=== PATIENT | female | born 1965 | race Caucasian/White ===

== ENCOUNTER → 2018-02-12 | Outpatient (CLI) | payer BC ==
--- NOTE | 2018-02-12 18:05 | US ---
EXAMINATION TYPE: US venous doppler duplex LE RT DATE OF EXAM: 02/12/2018 5:46 PM COMPARISON: NONE CLINICAL HISTORY: M79.669 Pain in right calf. SIDE PERFORMED: Right TECHNIQUE: The lower extremity deep venous system is examined utilizing real time linear array sonog jonn with graded compression, doppler sonography and color-flow sonography. VESSELS IMAGED: External Iliac Vein (EIV) Common Femoral Vein Deep Femoral Vein Greater Saphenous Vein * Femoral Vein Popliteal Vein Small Saphenous Vein * Proximal Calf Veins (* superficial vessels) Right Leg: Negative for DVT IMPRESSION: No evidence of deep venous thrombosis in the right leg.
== END | disposition home or self-care (01) ==
LOC: RADUSMAIN 17:15
PROVIDERS: ATTEND Nurse Practitioner Family
DX: M79.669 Pain in unspecified lower leg (principal)

== ENCOUNTER 2021-04-05 12:55 | Observation (INO) | payer BC ==
--- NOTE | 2021-04-05 13:30 | ED ---
General Adult HPI - General Chief complaint: Chest Pain Stated complaint: back/chest pain Time Seen by Provider: 04/05/21 13:13 Source: patient Mode of arrival: ambulatory Limitations: no limitations - History of Present Illness Initial comments: Dictation was produced using [employer] dictation software. please excuse any grammatical, word or spelling errors. Chief Complaint: 55-year-old female past medical history multiple sclerosis p resents with chest pain, epigastric pain, lower back pain and leg swelling. History of Present Illness: Patient is 55-year-old female presents with multiple complaints. Patient states she has chest and epigastric pain, lower back pain or leg swelling. Patient states that she has past medical history of multiple sclerosis. She gets frequent injections from her neurologist. Patient states her symptoms have been ongoing for 48-72 hours. Patient has any cardiac history. She does have a history of dyslipidemia. Patient has no fever. States that her chest pain is nonradiating. No nausea or vomiting. She does complain of mild dyspnea. Patient states that she has pain and different parts of her body. States it is not worse with movement or palpation. No constitutional symptoms. She called one of her physicians office and was redirected to the emergency room for concerns of possible heart attack. Patient allegedly has strong family history of cardiac disease. The ROS documented in this emergency department record has been reviewed and confirmed by me. Those systems with pertinent positive or negative responses have been documented in the HPI. All other systems are other negative and/or noncontributory. PHYSICAL EXAM: General Impression: Alert and oriented x3, not in acute distress HEENT: Normocephalic atraumatic, extra-ocular movements intact, pupils equal and reactive to light bilaterally, mucous membranes moist. Cardiovascular: Heart regular rate and rhythm Chest: Able to complete full sentences, no retractions, no tachypnea Abdomen: abdomen soft, non-tender, non-distended, no organomegaly Musculoskeletal: Pulses present and equal in all extremities, no peripheral edema Motor: no focal deficits noted Neurological: CN II-XII grossly intact, no focal motor or sensory deficits noted Skin: Intact with no visualized rashes Psych: Normal affect and mood ED course: 55-year-old female presents to the emergency department for multiple complaints. Her complaints include chest pain, epigastric pain, lower back pain, lower extremity swelling. She does have atypical chest pain with typical features. Vital signs upon arrival are within acceptable limits. Physical examination is benign. Patient does not appear to be in any acute distress. Laboratory evaluation obtained. Patient is leukocytosis of 17.8. She has no localizing symptoms. No cough. No dysuria or no abdominal pain concerning for surgical abdomen. Coag panel is unremarkable. Metabolic panel is negative. Troponin negative. Brain natruretic peptide negative. Lipase negative. Ur inalysis shows no findings of urinary tract infection. Patient does not have any respiratory symptoms. At this point is concerned as this is a stress leukocytosis. Chest x-ray was nonacute. Disposition options were discussed. Patient be admitted to the hospital for serial troponins, cardiac monitoring and cardiology consultation. Patient given aspirin. Patient be evaluated at bedside at 2:45 PM found to be in stable medical condition. Patient is well- appearing. She denies any chest pain at this time. EKG interpretation: Ventricular rate 79, normal sinus rhythm, PA interval 136, QRS 72, QTC 378. No PA prolongation, no QTC prolongation, no ST or T-wave changes noted. No old EKG for comparison.. Overall, this EKG is unremarkable - Related Data Home Medications Medication Instructions Recorded Confirmed Ascorbic Acid [Vitamin C] 1,000 mg PO DAILY 04/05/21 04/05/21 Aspirin EC [Ecotrin Low Dose] 81 mg PO DAILY 04/05/21 04/05/21 Atorvastatin [Lipitor] 40 mg PO HS 04/05/21 04/05/21 Calcium Carbonate [Calcium] 600 mg PO DAILY 04/05/21 04/05/21 Glatiramer Acetate 40 mg PO MOWEFR 04/05/21 04/05/21 Glucosamine Sulfate 1,000 mg PO BID 04/05/21 04/05/21 Multivitamins, Thera [Multivitamin 1 tab PO DAILY 04/05/21 04/05/21 (formulary)] Naproxen 500 mg PO BID 04/05/21 04/05/21 Vitamin B Complex 1 cap PO DAILY 04/05/21 04/05/21 Zinc 50 mg PO DAILY 04/05/21 04/05/21 Allergies Allergy/AdvReac Type Severity Reaction Status Date / Time No Known Allergies Allergy Verified 04/05/21 13:43 Review of Systems ROS Statement: Those systems with pertinent positive or pertinent negative responses have been documented in the HPI. ROS Other: All systems not noted in ROS Statement are negative. Past Medical History Past Medical History: Hyperlipidemia Additional Past Medical History / Comment(s): MS History of Any Multi-Drug Resistant Organisms: None Reported Past Surgical History: No Surgical Hx Reported Past Psychological History: No Psychological Hx Reported Smoking Status: Former smoker Past Alcohol Use History: None Reported Past Drug Use History: None Reported General Exam Limitations: no limitations Course Vital Signs 04/05/21 13:06 Temperature 98.2 F Pulse Rate 99 Respiratory 18 Rate Blood Pressure 125/68 O2 Sat by Pulse 97 Oximetry Medical Decision Making - Lab Data Result diagrams: 04/05/21 13:45 04/05/21 13:45 Lab Results 04/05/21 04/05/21 04/05/21 Range/Units 13:45 13:45 13:45 WBC 17.8 H (3.8-10.6) k/uL RBC 4.23 (3.80-5.40) m/uL Hgb 14.0 (11.4-16.0) gm/dL Hct 40.1 (34.0-46.0) % MCV 94.7 (80.0-100.0) fL MCH 33.0 (25.0-35.0) pg MCHC 34.9 (31.0-37.0) g/dL RDW 13.0 (11.5-15.5) % Plt Count 316 (150-450) k/uL MPV 7.4 Neutrophils % 87 % Lymphocytes % 7 % Monocytes % 3 % Eosinophils % 1 % Basophils % 0 % Neutrophils # 15.5 H (1.3-7.7) k/uL Lymphocytes # 1.3 (1.0-4.8) k/uL Monocytes # 0.6 (0-1.0) k/uL Eosinophils # 0.2 (0-0.7) k/uL Basophils # 0.1 (0-0.2) k/uL PT 10.5 (9.0-12.0) sec INR 1.0 (<1.2) APTT 22.9 (22.0-30.0) sec Sodium (137-145) mmol/L Potassium (3.5-5.1) mmol/L Chloride (98-107) mmol/L Carbon Dioxide (22-30) mmol/L Anion Gap mmol/L BUN (7-17) mg/dL Creatinine (0.52-1.04) mg/dL Est GFR (CKD-EPI)AfAm (>60 ml/min/1.73 sqM) Est GFR (CKD-EPI)NonAf (>60 ml/min/1.73 sqM) Glucose (74-99) mg/dL Calcium (8.4-10.2) mg/dL Magnesium (1.6-2.3) mg/dL Total Bilirubin (0.2-1.3) mg/dL AST (14-36) U/L ALT (4-34) U/L Alkaline Phosphatase (38-126) U/L Troponin I (0.000-0.034) ng/mL NT-Pro-B Natriuret Pep pg/mL Total Protein (6.3-8.2) g/dL Albumin (3.5-5.0) g/dL Lipase (23-300) U/L Urine Color Yellow Urine Appearance Clear (Clear) Urine pH 7.0 (5.0-8.0) Ur Specific [place] 1.018 (1.001-1.035) Urine Protein Trace H (Negative) Urine Glucose (UA) Negative (Negative) Urine Ketones Negative (Negative) Urine Blood Negative (Negative) Urine Nitrite Negative (Negative) Urine Bilirubin Negative (Negative) Urine Urobilinogen 2.0 (<2.0) mg/dL Ur Leukocyte Esterase Negative (Negative) 04/05/21 04/05/21 04/05/21 Range/Units 13:45 13:45 13:45 WBC (3.8-10.6) k/uL RBC (3.80-5.40) m/uL Hgb (11.4-16.0) gm/dL Hct (34.0-46.0) % MCV (80.0-100.0) fL MCH (25.0-35.0) pg MCHC (31.0-37.0) g/dL RDW (11.5-15.5) % Plt Count (150-450) k/uL MPV Neutrophils % % Lymphocytes % % Monocytes % % Eosinophils % % Basophils % % Neutrophils # (1.3-7.7) k/uL Lymphocytes # (1.0-4.8) k/uL Monocytes # (0-1.0) k/uL Eosinophils # (0-0.7) k/uL Basophils # (0-0.2) k/uL PT (9.0-12.0) sec INR (<1.2) APTT (22.0-30.0) sec Sodium 138 (137-145) mmol/L Potassium 4.2 (3.5-5.1) mmol/L Chloride 105 (98-107) mmol/L Carbon Dioxide 25 (22-30) mmol/L Anion Gap 8 mmol/L BUN 11 (7-17) mg/dL Creatinine 0.64 (0.52-1.04) mg/dL Est GFR (CKD-EPI)AfAm >90 (>60 ml/min/1.73 sqM) Est GFR (CKD-EPI)NonAf >90 (>60 ml/min/1.73 sqM) Glucose 129 H (74-99) mg/dL Calcium 9.3 (8.4-10.2) mg/dL Magnesium 2.0 (1.6-2.3) mg/dL Total Bilirubin 0.5 (0.2-1.3) mg/dL AST 32 (14-36) U/L ALT 34 (4-34) U/L Alkaline Phosphatase 123 (38-126) U/L Troponin I <0.012 (0.000-0.034) ng/mL NT-Pro-B Natriuret Pep 467 pg/mL Total Protein 7.4 (6.3-8.2) g/dL Albumin 4.2 (3.5-5.0) g/dL Lipase 66 (23-300) U/L Urine Color Urine Appearance (Clear) Urine pH (5.0-8.0) Ur Specific [place] (1.001-1.035) Urine Protein (Negative) Urine Glucose (UA) (Negative) Urine Ketones (Negative) Urine Blood (Negative) Urine Nitrite (Negative) Urine Bilirubin (Negative) Urine Urobilinogen (<2.0) mg/dL Ur Leukocyte Esterase (Negative) Disposition Clinical Impression: Chest pain Disposition: ADMITTED IP TO THIS [facility] Condition: Fair Referrals: Terrence Abraham MD [Primary Care Provider] - 1-2 days
[2021-04-05 14:09] LABS: Basophils # (A) 0.1 k/uL (0-0.2); Basophils % (A) 0 %; Eosinophils # (A) 0.2 k/uL (0-0.7); Eosinophils % (A) 1 %; HCT 40.1 % (34.0-46.0); Lymphocytes # (A) 1.3 k/uL (1.0-4.8); Lymphocytes % (A) 7 %; MCHC 34.9 g/dL (31.0-37.0); MCV 94.7 fL (80.0-100.0); Mean Platelet Volume 7.4; Monocytes # (A) 0.6 k/uL (0-1.0); Monocytes % (A) 3 %; Neutrophils # (A) 15.5 k/uL (1.3-7.7); Neutrophils % (A) 87 %; Platelet Count 316 k/uL (150-450); RBC 4.23 m/uL (3.80-5.40); WBC 17.8 k/uL (3.8-10.6)
[2021-04-05 14:10] LABS: Appearance,Urine Clear (Clear); Bilirubin,Urine Negative (Negative); Blood,Urine Negative (Negative); Color,Urine Yellow; Glucose,Urine (UA) Negative (Negative); Ketones,Urine Negative (Negative); Leukocyte Esterase,Urine Negative (Negative); Nitrite,Urine Negative (Negative); Protein,Urine Trace (Negative); Specific Gravity,Urine 1.018 (1.001-1.035)
[2021-04-05 14:18] LABS: Partial Thromboplastin Time 22.9 sec (22.0-30.0); Prothrombin Time 10.5 sec (9.0-12.0)
[2021-04-05 14:22] LABS: ALT 34 U/L (4-34); AST 32 U/L (14-36); African American GFR (CKD) >90 (>60 ml/min/1.73 sqM); Albumin 4.2 g/dL (3.5-5.0); Alkaline Phosphatase 123 U/L (38-126); Anion Gap 8 mmol/L; Blood Urea Nitrogen 11 mg/dL (7-17); Calcium 9.3 mg/dL (8.4-10.2); Carbon Dioxide 25 mmol/L (22-30); Chloride 105 mmol/L (98-107); Glucose 129 mg/dL (74-99); Lipase 66 U/L (23-300); Non-African American GFR(CKD) >90 (>60 ml/min/1.73 sqM); Potassium 4.2 mmol/L (3.5-5.1); Sodium 138 mmol/L (137-145); Total Bilirubin 0.5 mg/dL (0.2-1.3); Total Protein 7.4 g/dL (6.3-8.2)
--- NOTE | 2021-04-05 14:29 | XR ---
EXAMINATION TYPE: XR chest 2V DATE OF EXAM: 04/05/2021 COMPARISON: None INDICATION: Epigastric and back pain TECHNIQUE: Frontal and lateral views of the chest are obtained. FINDINGS: The heart size is normal. The pulmonary vasculature is normal. The lungs are clear. IMPRESSION: 1. No acute pulmonary process.
[2021-04-05] MEDS ORDERED: NITROGLYCERIN SL TABS 0.4 MG TAB SUBLINGUAL PRN (14:50)
[2021-04-05] MEDS ORDERED: ASPIRIN 81 MG PO STA (14:50)
--- NOTE | 2021-04-05 17:50 | P.HPIM ---
History of Present Illness H&P Date: 04/05/21 Chief Complaint: Chest pain HISTORY OF PRESENT ILLNESS: This is a 55-year-old female one of my patient with a previous medical history significant for multiple sclerosis, GERD with esophagitis, hyper lipidemia, and osteoarthritis, presented to the emergency department at [facility] today with with the chest pain associated with epigastric pain along with low back pain and leg swelling, she presented with numerous complaints at this point in time she was evaluated in the ER and had a twelve-lead EKG that did not show evidence of acute of normalities, her cardiac enzymes are negative, BNP was negative, her white counts were elevated at 17,000, because of the presentation and because of her family history of heart disease she was admitted to the hospital for evaluation of coronary artery disease and risk stratification. REVIEW OF SYSTEMS: Constitutional: No documented fever, no chills, no night sweats. No weight change. No weakness, fatigue or lethargy. No daytime sleepiness. HEENT: No headache. No blurred vision or double vision, no loss of vision. No loss of Hearing, no ringing in the ears, no dizziness. No nasal drainage or congestion. No epistaxis. No sore throat. Lungs: No shortness of breath, no cough, no sputum production. No wheezing. Reports dyspnea with activity. Cardiovascular: positive for chest pain, positive for lower extremity edema. No palpitations. No paroxysmal nocturnal dyspnea. No orthopnea. No lig htheadedness or dizziness. No syncopal episodes. Abdominal: Reports abdominal pain. No nausea, vomiting. No diarrhea. No constipation. No bloody or tarry stools reports loss of appetite. Genitourinary: No dysuria, increased frequency, urgency. No urinary retention. Musculoskeletal: No myalgias. No muscle weakness, no gait dysfunction, no frequent falls. No back pain. No neck pain. Integumentary: No wounds, no lesions. No rash or pruritus. No unusual bruising. No change in hair or nails. Neurologic: No aphasia. No facial droop. No change in mentation. No head injury. No headache. No paralysis. No paresthesia. Psychiatric: No depression. No anxiety. No mood swings. Endocrine: No abnormal blood sugars. No weight change. PAST MEDICAL HISTORY: Mixed hyperlipidemia. Multiple sclerosis. GERD with esophagitis. Osteoarthritis. PAST SURGICAL HISTORY: No past surgical history. SOCIAL HISTORY: Patient is a lifelong nonsmoker she denies any alcohol ingestion, no drainage or abuse. FAMILY HISTORY: Father is 82-year-old with history of CAD post PCI and multiple stent placement, hypertension and hypertensive cardio vascular disease, hyperlipidemia and chronic low back pain mother is 80-year-old with history of diabetes mellitus type 2 hypertension hyperlipidemia coronary artery disease status post coronary artery bypass graft, patient has one sister with hypertension and diabetes and hyperlipidemia. PHYSICAL EXAMINATION: General: 55-year-old female laying down in bed in no apparent distress. HEENT: Head is atraumatic, normocephalic, pupils were equal round reactive to light and recommendation, extraocular muscle movement were intact, sclera nonict beatris, conjunctivae were pale, mucous membranes of the mouth are somewhat dry. Neck: Supple, no JVP, normal carotid upstroke bilaterally, no lymphadenopathy. Chest: Decreased breath sounds at the bases, few rhonchi, no expiratory wheezes, no chest wall tenderness, no intercostal retractions. Heart: First heart sound is normal, second heart sounds normal Abdomen: Soft, nontender, nondistended, positive bowel sounds no hepatosplenomegaly. , Extremities: There is trace edema no calf tenderness DP +2 bilaterally. Neurologic examination: Patient is awake alert and oriented X 3, cranial nerves II-12 appear grossly intact, muscle power were 5 out of 5 in upper extremities and 5 out of 5 in bilateral lower extremities, deep tendon reflexes normal bilaterally. ASSESSMENT AND PLAN: 1. Chest pain likely noncardiac but patient does appear to have a significant family history of coronary artery disease. Cardiac enzymes 2 every 3 hours, echocardiogram for evaluation of LV function,, we will arrange for dobutamine stress echo tomorrow morning. 2. Mixed hyperlipidemia. Continue atorvastatin 40 mg orally once every day. Monitor the patient panel, keep LDL 55-70. 3. Multiple sclerosis. Patient has been under the care of neurology continue patient on Glatiramer acetate 40 mg /ml 1 mL subcutaneously Thursday, Thursday, and Thursday 4. Osteoarthritis. Continue patient on glucose 7 as needed hold Naprosyn for now. 5. GERD with esophagitis. Continue patient on omeprazole 40 mg once every day or its substitute. 6. DVT prophylaxis. Heparin 5000 units subcutaneously every 8 hours. 7. GI prophylaxis. Continue PPI. 8. Observation. 9. Patient is full code. Past Medical History Past Medical History: Hyperlipidemia Additional Past Medical History / Comment(s): MS History of Any Multi-Drug Resistant Organisms: None Reported Past Surgical History: No Surgical Hx Reported Past Psychological History: No Psychological Hx Reported Smoking Status: Former smoker Past Alcohol Use History: None Reported Past Drug Use History: None Reported Medications and Allergies Home Medications Medication Instructions Recorded Confirmed Type Ascorbic Acid [Vitamin C] 1,000 mg PO DAILY 04/05/21 04/05/21 History Aspirin EC [Ecotrin Low Dose] 81 mg PO DAILY 04/05/21 04/05/21 History Atorvastatin [Lipitor] 40 mg PO HS 04/05/21 04/05/21 History Calcium Carbonate [Calcium] 600 mg PO DAILY 04/05/21 04/05/21 History Glatiramer Acetate 40 mg PO MOWEFR 04/05/21 04/05/21 History Glucosamine Sulfate 1,000 mg PO BID 04/05/21 04/05/21 History Multivitamins, Thera [Multivitamin 1 tab PO DAILY 04/05/21 04/05/21 History (formulary)] Naproxen 500 mg PO BID 04/05/21 04/05/21 History Vitamin B Complex 1 cap PO DAILY 04/05/21 04/05/21 History Zinc 50 mg PO DAILY 04/05/21 04/05/21 History Allergies Allergy/AdvReac Type Severity Reaction Status Date / Time No Known Allergies Allergy Verified 04/05/21 13:43 Physical Exam Vitals: Vital Signs Temp Pulse Resp BP Pulse Ox 04/05/21 15:31 18 04/05/21 15:10 99 18 135/68 82 L 04/05/21 13:06 98.2 F 99 18 125/68 97 Intake and Output 04/05/21 04/05/21 04/05/21 06:59 14:59 22:59 Other: Weight 73.21 kg Results CBC & Chem 7: 04/05/21 13:45 04/05/21 13:45 Labs: Abnormal Lab Results - Last 24 Hours (Table) 04/05/21 04/05/21 04/05/21 Range/Units 13:45 13:45 13:45 WBC 17.8 H (3.8-10.6) k/uL Neutrophils # 15.5 H (1.3-7.7) k/uL Glucose 129 H (74-99) mg/dL Urine Protein Trace H (Negative)
[2021-04-05] MEDS ORDERED: GLATIRAMER ACETATE 40 MG/ML PO SCH (18:00)
[2021-04-05] MEDS: HYDROcodone/APAP 5-325MG 1 EACH TAB PO PRN (19:33)
[2021-04-05 19:40] VITALS: RESP 16
[2021-04-05] MEDS ORDERED: NON FORMULARY DRUG (Glucosamine Sulfate [Glucosamine Sulfate] 1,000 MG Tablet) PO SCH (21:00)
[2021-04-05] MEDS ORDERED: ATORVASTATIN 40 MG TAB PO SCH (21:00)
[2021-04-05] MEDS: HEPARIN SODIUM,PORCINE/PF 5,000 UNIT/0.5 ML SYRINGE SQ SCH (23:25)
[2021-04-06 07:06] VITALS: BP 114/69; TEMP 98.1
[2021-04-06] MEDS: HYDROcodone/APAP 5-325MG 1 EACH TAB PO PRN (07:06)
[2021-04-06] MEDS: HEPARIN SODIUM,PORCINE/PF 5,000 UNIT/0.5 ML SYRINGE SQ SCH (07:09)
[2021-04-06] MEDS ORDERED: PANTOPRAZOLE 40 MG TABLET PO SCH (07:30)
[2021-04-06 07:33] LABS: ALT 29 U/L (4-34); AST 27 U/L (14-36); African American GFR (CKD) >90 (>60 ml/min/1.73 sqM); Albumin 3.5 g/dL (3.5-5.0); Albumin/Globulin Ratio 1.1; Alkaline Phosphatase 115 U/L (38-126); Anion Gap 8 mmol/L; Blood Urea Nitrogen 13 mg/dL (7-17); Carbon Dioxide 23 mmol/L (22-30); Chloride 105 mmol/L (98-107); Globulin 3.2 g/dL; Glucose 118 mg/dL (74-99); Non-African American GFR(CKD) >90 (>60 ml/min/1.73 sqM); Potassium 4.5 mmol/L (3.5-5.1); Sodium 136 mmol/L (137-145); Total Bilirubin 0.5 mg/dL (0.2-1.3); Total Protein 6.7 g/dL (6.3-8.2)
[2021-04-06 07:50] VITALS: PULSE 79
[2021-04-06] MEDS ORDERED: ASPIRIN 81 MG PO SCH (09:00)
[2021-04-06] MEDS ORDERED: NON FORMULARY DRUG (Vitamin B Complex [Vitamin B Complex] 1 EACH Capsule) PO SCH (09:00)
[2021-04-06] MEDS ORDERED: MULTIVITAMINS, THERA 1 EACH TAB PO SCH (09:00)
[2021-04-06] MEDS ORDERED: ASPIRIN 325 MG TAB PO SCH (09:00)
[2021-04-06] MEDS ORDERED: ZINC SULFATE 220 MG CAP PO SCH (09:00)
[2021-04-06] MEDS ORDERED: ASCORBIC ACID 500 MG TAB PO SCH (09:00)
[2021-04-06] MEDS ORDERED: CALCIUM CARBONATE 500 MG CHEWABLE PO SCH (09:00)
[2021-04-06 11:50] LABS: Basophils # (A) 0.04 X 10*3/uL (0.00-0.10); Basophils % (A) 0.3 %; Eosinophils # (A) 0.17 X 10*3/uL (0.04-0.35); Eosinophils % (A) 1.2 %; HCT 38.3 % (37.2-46.3); HGB 12.4 g/dL (12.0-15.0); Lymphocytes # (A) 2.27 X 10*3/uL (0.90-5.00); Lymphocytes % (A) 15.7 %; MCH 30.8 pg (27.0-32.0); MCHC 32.4 g/dL (32.0-37.0); Monocytes # (A) 0.96 X 10*3/uL (0.20-1.00); Monocytes % (A) 6.6 %; Neutrophils # (A) 10.95 X 10*3/uL (1.80-7.70); Neutrophils % (A) 75.8 %; Platelet Count 293 X 10*3/uL (140-440); RBC 4.03 X 10*6/uL (4.10-5.20); RDW 12.8 % (11.5-14.5); WBC 14.45 X 10*3/uL (4.50-10.00)
--- NOTE | 2021-04-06 12:16 | ECHOF ---
Referral Reason:Chest pain MEASUREMENTS -------- HEIGHT: 152.4 cm WEIGHT: 73.0 kg BP: RVIDd: 2.5 cm (< 3.3) IVSd: 0.8 cm (0.6 - 1.1) LVIDd: 3.7 cm (3.9 - 5.3) LVPWd: 0.9 cm (0.6 - 1.1) IVSs: 1.2 cm LVIDs: 2.6 cm LVPWs: 1.3 cm LAESV Index (A-L): 17.81 ml/m Ao Diam: 2.4 cm (2.0 - 3.7) AV Cusp: 1.4 cm (1.5 - 2.6) MV EXCURSION: 17.007 mm (> 18.000) MV EF SLOPE: 105 mm/s (70 - 150) EPSS: 0.3 cm MV E Cristopher: 1.00 m/s MV DecT: 210 ms MV A Cristopher: 0.61 m/s MV E/A Ratio: 1.64 RAP: 5.00 mmHg RVSP: 33.11 mmHg FINDINGS -------- Sinus rhythm. This was a technically good study. LV size, wall thickness and systolic function are normal, with an EF greater than 55%. The left saida tricular size is normal. The right ventricle is normal in size. Normal LA size by volume 22+/-6 ml/m2. The right atrial size is normal. The aortic valve is trileaflet, and appears structurally normal. No aortic stenosis or regurgitation. Mild mitral regurgitation is present. Mild tricuspid regurgitation present. Right ventricular systolic pressure is normal at < 35 mmHg. There is no pulmonic regurgitation present. There is no pericardial effusion. CONCLUSIONS -------- 1. LV size, wall thickness and systolic function are normal, with an EF greater than 55%. 2. The left ventricular size is normal. 3. The right ventricle is normal in size. 4. Normal LA size by volume 22+/-6 ml/m2. 5. The right atrial size is normal. 6. The aortic valve is trileaflet, and appears structurally normal. No aortic stenosis or regurgitati on. 7. Mild mitral regurgitation is present. 8. Mild tricuspid regurgitation present. 9. There is no pericardial effusion. WELDING PROCESS ENGINEER: Suzanne Stephens RDCS
--- NOTE | 2021-04-06 12:31 | CONS ---
CONSULTATION This is a 55-year-old lady, a patient of Dr. Abraham, who came into the hospital with episode of chest tightness and pressure. Quality of pain is atypical. She is resting comfortably without symptoms. Her troponins are all normal. Quality of pain is atypical. She has a family history of CAD, but it is not considered risk factor, since her parents were in their late 70s or early 80s when they had CAD. She is resting comfortably without symptoms. EKG and troponins are normal. When she came into the hospital, she complained initially of some epigastric pain, low back pain, leg swelling, had multiple complaints and then she said she had some twinges in the chest. Therefore she was admitted. Atypical pain. No recurrence. She is comfortable. PAST MEDICAL HISTORY: Remarkable for multiple sclerosis, hyperlipidemia and also some history of gastroesophageal reflux disease. MEDICATIONS: Medications at home include aspirin 81 mg daily, multivitamins, atorvastatin 40 mg daily, naproxen and glucosamine. ALLERGIES: NONE. PHYSICAL EXAMINATION: On examination, blood pressure is 118/70, pulse rate 74 per minute, regular. HEENT unremarkable. Fundus was not examined by me. Neck is supple. No JVD. I do not hear a carotid bruit. There is no thyromegaly. Heart exam reveals S1, S2 heard normally without a rub, murmur or gallop. Lungs are clear. Abdomen is soft, nontender. Lower extremities reveal normal pulses. No edema. CENTRAL NERVOUS SYSTEM: A detailed exam was not performed, but no focal deficits. EKG revealed sinus mechanism, no acute changes. Laboratory data revealed unremarkable troponins. No significant abnormalities. IMPRESSION: 1. Atypical chest pain. Normal EKG and unremarkable troponins. 2. History of multiple sclerosis. 3. History of gastroesophageal reflux disease. 4. Hyperlipidemia. 5. History of multiple sclerosis with no exacerbations recently. RECOMMENDATIONS: I am recommending that we can increase activity, feed her and discharge today. I will see her in the office next week and consider stress testing as an outpatient. No further intervention is necessary. An echo was ordered and this can be done, but there is no need to hold the patient's discharge for the echocardiogram findings. The patient can be discharged today. MMODL / IJN: [id number] /
[2021-04-06 21:45] LABS: Chol/HDL Ratio 3.09 Ratio; LDL Cholesterol,Calculated 68.8 mg/dL (0.0-131.0)
== END 2021-04-06 13:31 | disposition home or self-care (01) ==
LOC: EC 12:55 → 6NMEDSUR 14:51
PROVIDERS: ADMIT Internal Medicine; ATTEND Internal Medicine
DX: R07.89 Other chest pain (principal); E78.2 Mixed hyperlipidemia; G35 Multiple sclerosis; M19.90 Unspecified osteoarthritis, unspecified site; Z20.822 Contact with and (suspected) exposure to COVID-19; K21.00 Gastro-esophageal reflux disease with esophagitis, without bleeding; D72.829 Elevated white blood cell count, unspecified; R10.13 Epigastric pain; G89.29 Other chronic pain; M54.5 Low back pain; M79.89 Other specified soft tissue disorders; Z79.82 Long term (current) use of aspirin; Z79.899 Other long term (current) drug therapy; Z87.891 Personal history of nicotine dependence; Z83.3 Family history of diabetes mellitus; Z82.49 Family history of ischemic heart disease and other diseases of the circulatory system
CPT/HCPCS: 99285; 96372 ×2; 36415; 93005; 93306; 83880; 80061; 80053 ×2; 83690; 83735; 84484; 85025 ×2; 85610; 85730; 81003; 87635; 71046; G0378 ×2; J1644 ×2